=== PATIENT | female | born 1950 | race Asian ===

== ENCOUNTER → 2016-09-12 | Outpatient (CLI) | payer OTHER ==
[~2016-09-12] MED LIST: AMLO-147 PO; ANAS1TAB PO; Calcium Carbonate PO; HYDR-906 PO; LOSA100T7 PO; NAPR220C2 PO
--- NOTE | 2016-09-12 13:58 | RADRPT ---
PROCEDURE: Whole body bone scan study CLINICAL INDICATION: 66 -year-old patient with breast and thyroid cancer, for evaluation for skele amber metastases. TECHNIQUE: Following the intravenous injection of 23.4 mCi of Tc-99m MDP, whole body anterior and posterior planar images were obtained along with spot views of the head , neck and chest. COMPARISON: No prior bone scans are available for comparison. FINDINGS: Numerous areas of intensely increased activity are seen in the cervical spine, to the left of the mi dline and lower lumbar spine, at approximately L5 level. The findings favor degenerative process. Mildly increased uptake is seen in both knees, which most likely represent degenerative disease. No other definite abnormal areas of increased activity or asymmetries are visualized in the study an d distribution of radionuclide is homogeneous in the skull, spine, rib cages, sternum, pelvis and vi sualized portions of the upper and lower extremities. Of incidental note, there is no evidence of mass abnormalities of the kidneys. IMPRESSION: 1. No definite scintigraphic evidence to suggest the presence of skeletal metastases. 2. Likely degenerative changes of the cervical and lower lumbar spine and both knees. RPTAT: HH .Meli Snider MD, Date Time Electronically viewed and signed by .Meli Snider MD, on 09/12/2016 13:57 .L/
== END | disposition home or self-care (01) ==
LOC: NUC 08:28
PROVIDERS: ATTEND Specialist
DX: C50.919 Malignant neoplasm of unspecified site of unspecified female breast (principal); M54.9 Dorsalgia, unspecified; M50.30 Other cervical disc degeneration, unspecified cervical region; M51.36 Other intervertebral disc degeneration, lumbar region; M17.0 Bilateral primary osteoarthritis of knee
CPT/HCPCS: 78306; A9503